=== PATIENT | female | born 1995 | race African-American/Black ===

== ENCOUNTER 2018-12-19 11:56 | Emergency (ER) | payer MEDICAID ==
[~2018-12-19] VITALS: Ht 165.1 cm; Wt 87.0 kg
[2018-12-19] MEDS ORDERED: SODIUM CHLORIDE 0.9% 1,000 ML IV SCH (16:17)
[2018-12-19] MEDS ORDERED: FAMOTIDINE 20MG/2ML VIAL IV ONE (16:30)
[2018-12-19] MEDS ORDERED: ONDANSETRON HCL 4MG/2ML INJ IV ONE (16:30)
[2018-12-19] MEDS ORDERED: METHYLPREDNISOLONE SOD SUCC 125 MG/2 ML VIAL IV ONE (16:30)
[2018-12-19 18:57] VITALS: BP 119/74
== END 2018-12-19 19:02 | disposition home or self-care (01) ==
LOC: ER 11:56
DX: T78.1XXA Other adverse food reactions, not elsewhere classified, initial encounter (principal); J45.909 Unspecified asthma, uncomplicated; X58.XXXA Exposure to other specified factors, initial encounter
CPT/HCPCS: 81025; 96374; 96375; 99283; J2405; J2930; J3490